=== PATIENT | male | born 1970 | race Caucasian/White ===

== ENCOUNTER → 2017-01-14 | Outpatient (CLI) | payer OTHER ==
[~2017-01-14] VITALS: Ht 175.3 cm; Wt 64.9 kg
[~2017-01-14] MED LIST: APRI0.37 PO; LIAL1.2T PO; MULT1TAB10 PO; NS 1,000 ML IV SCH; PROPOFOL 200 MG/20 ML VIAL As Ordered ONE
--- NOTE | 2017-01-14 09:06 | ROOR ---
Patient Name: Donnie Valencia Procedure Date: 01/14/2017 8:35 AM Date of : 1970 Age: 46 Room: [facility] Gender: Male Note Status: Finalized Procedure: Colonoscopy to Cecum + Biopsies Indications: High risk colon cancer surveillance: Ulcerative pancolitis of 8 (or more) years duration Providers: Harinder Anna MD Referring MD: Remy Benson MD Requesting Provider: Medicines: Monitored Anesthesia Care Complications: No immediate complications. Procedure: Pre-Anesthesia Assessment: - The heart rate, respiratory rate, oxygen saturations, blood pressure, adequacy of pulmonary ventilation, and response to care were monitored throughout the procedure. The Colonoscope was introduced through the anus and advanced to the cecum, identified by appendiceal orifice and ileocecal valve. The colonoscopy was performed without difficulty. The patient tolerated the procedure well. The quality of the bowel preparation was good. Findings: The perianal and digital rectal examinations were normal. Non-bleeding internal hemorrhoids were found during retroflexion. The hemorrhoids were small and Grade I (internal hemorrhoids that do not prolapse). Inflammation characterized by scarring was found in a continuous and circumferential pattern from the anus to the cecum. No sites were spared. When compared to previous examinations, the findings are quiescent. Multiple biopsies were obtained with cold forceps for ulcerative colitis surveillance randomly in the sigmoid colon, in the descending colon, in the transverse colon, at the hepatic flexure and in the ascending colon. The exam was otherwise without abnormality. Impression: - Non-bleeding internal hemorrhoids. - Pancolitis ulcerative colitis. Inflammation was found from the anus to the cecum. The findings are quiescent compared to previous examinations. - The examination was otherwise normal. - Multiple biopsies were obtained in the sigmoid colon, in the descending colon, in the transverse colon, at the hepatic flexure and in the ascending colon. - The exam was otherwise normal to the cecum. Recommendation: - Patient has a contact number available for emergencies. The signs and symptoms of potential delayed complications were discussed with the patient. Return to normal activities tomorrow. Written discharge instructions were provided to the patient. - High fiber diet. - Discharge patient to home. - Continue present medications. - Await pathology results. - Check Portal Online for Path Results.([email or web address] - Repeat colonoscopy for surveillance based on pathology results. - Return to referring physician. - The findings and recommendations were discussed with the patient's family. Harinder Anna MD Harinder Anna MD 01/14/2017 9:05:45 AM This report has been signed electronically. Number of Addenda: 0 Note Initiated On: 01/14/2017 8:35 AM Estimated Blood Loss: Estimated blood loss: none.
[2017-01-14 09:30] VITALS: BP 139/92
== END | disposition home or self-care (01) ==
LOC: M OPP 07:48
PROVIDERS: ATTEND Internal Medicine Gastroenterology
DX: Z09 Encounter for follow-up examination after completed treatment for conditions other than malignant neoplasm (principal); K51.00 Ulcerative (chronic) pancolitis without complications; K64.0 First degree hemorrhoids; Z79.899 Other long term (current) drug therapy

== ENCOUNTER → 2019-05-19 | Outpatient (CLI) | payer OTHER ==
[~2019-05-19] MED LIST changes: -NS 1,000 ML IV SCH; -PROPOFOL 200 MG/20 ML VIAL As Ordered ONE
--- NOTE | 2019-05-19 18:49 | REP ---
REASON: Wrist pain after trauma. FINDINGS: No acute fracture or destructive osseous lesion. Electronically Signed by Scott Jamil DO 05/19/2019 07:38 P
== END ==
LOC: M WUC 17:46
PROVIDERS: ATTEND Physician Assistant
DX: M25.532 Pain in left wrist (principal)

== ENCOUNTER → 2022-10-29 | Outpatient (CLI) | payer OTHER ==
[~2022-10-29] MED LIST changes: +VYVA30CA4
== END ==
LOC: M LABSMTC 09:10
PROVIDERS: ATTEND Anesthesiology
DX: Z01.818 Encounter for other preprocedural examination (principal)

== ENCOUNTER 2022-11-03 06:56 | Day surgery (SDC) | payer OTHER ==
[~2022-11-03] VITALS: Ht 175.3 cm; Wt 64.0 kg
[~2022-11-03 06:56] MED LIST changes: +NS 1,000 ML IV ONE
[2022-11-03] MEDS ORDERED: propofoL 200 MG/20 ML VIAL As Ordered ONE (07:18)
[2022-11-03] MEDS ORDERED: LIDOCAINE 2% 100MG/5ML SDV (FOR ANES.) As Ordered ONE (07:18)
[2022-11-03 08:45] VITALS: BP 125/99
== END 2022-11-03 08:45 | disposition home or self-care (01) ==
LOC: M OPP 06:56
PROVIDERS: ATTEND Internal Medicine Gastroenterology
DX: K63.89 Other specified diseases of intestine (principal); K64.0 First degree hemorrhoids; Z79.899 Other long term (current) drug therapy